=== PATIENT | male | born 1950 | race Caucasian/White ===

== ENCOUNTER → 2020-07-28 | Outpatient (CLI) | payer MEDICARE ==
[2020-07-28 16:27] LABS: HEMOGLOBIN 14.9 gm/dl (14.0-17.5); RED BLOOD COUNT 4.96 M/UL (4.20-5.50); WHITE BLOOD COUNT 6.1 K/UL (4.5-11.0)
[2020-07-28 16:47] LABS: BUN/CREATININE RATIO 11 (0-10)
[2020-07-30 09:13] LABS: CEA 2.2 ng/mL (0.0-4.7); SARS COV-2 IGG AB Negative (Negative)
== END ==
LOC: LAB 14:31
PROVIDERS: Family Medicine
DX: Z12.5 Encounter for screening for malignant neoplasm of prostate (principal); E78.5 Hyperlipidemia, unspecified; I10 Essential (primary) hypertension; C18.9 Malignant neoplasm of colon, unspecified; Z20.822 Contact with and (suspected) exposure to COVID-19
CPT/HCPCS: 36415; 80053; 80061; 82378; 85027; 86769; G0103

== ENCOUNTER → 2021-11-01 | Outpatient (CLI) | payer MEDICARE ==
[2021-11-01 16:07] LABS: HEMOGLOBIN 15.6 gm/dl (14.0-17.5); RED BLOOD COUNT 5.12 M/UL (4.20-5.50); WHITE BLOOD COUNT 7.6 K/UL (4.5-11.0)
[2021-11-01 19:13] LABS: BUN/CREATININE RATIO 13 (0-10)
== END ==
LOC: LAB 14:48
PROVIDERS: Family Medicine
DX: Z12.5 Encounter for screening for malignant neoplasm of prostate (principal); E78.5 Hyperlipidemia, unspecified; C18.9 Malignant neoplasm of colon, unspecified
CPT/HCPCS: 36415; 80053; 80061; 82378; 83735; 84153; 85027